=== PATIENT | female | born 2000 | race Caucasian/White ===

== ENCOUNTER → 2020-05-02 | Outpatient (CLI) | payer OTHER | LOC: BHSO 13:07 | DX: F31.81 Bipolar II disorder (principal) ==

== ENCOUNTER → 2020-06-04 | Outpatient (CLI) | payer OTHER | LOC: BHSO 14:28 | DX: F31.81 Bipolar II disorder (principal) | CPT/HCPCS: G0463 ==

== ENCOUNTER → 2020-06-20 | Outpatient (CLI) | payer OTHER | LOC: BHSO 08:42 | DX: F31.81 Bipolar II disorder (principal) | CPT/HCPCS: G0463 ==